=== PATIENT | female | born 1995 | race Caucasian/White ===

== ENCOUNTER 2018-08-20 01:19 | Emergency (ER) | payer MEDICAID ==
[~2018-08-20] VITALS: Ht 165.1 cm; Wt 104.3 kg
[2018-08-20 01:22] VITALS: BP_SYST 161
[2018-08-20] MEDS ORDERED: CYCLOBENZAPRINE HCL 10 MG TABLET (FLEXERIL) PO ONE (01:45)
[2018-08-20] MEDS ORDERED: IBUPROFEN 800 MG TABLET PO ONE (01:45)
[2018-08-20 02:58] VITALS: BP_SYST 148
== END 2018-08-20 02:58 | disposition home or self-care (01) ==
LOC: SED 01:19
DX: M25.562 Pain in left knee (principal); M54.5 Low back pain; V43.62XA Car passenger injured in collision with other type car in traffic accident, initial encounter; Y93.89 Activity, other specified; Y92.410 Unspecified street and highway as the place of occurrence of the external cause; Y99.8 Other external cause status
CPT/HCPCS: 72072-TC; 72110; 73564; 99283

== ENCOUNTER 2018-10-27 23:53 | Emergency (ER) | payer MEDICAID ==
[~2018-10-27] VITALS: Ht 167.6 cm; Wt 108.9 kg
[2018-10-28 00:08] VITALS: BP_SYST 145
[2018-10-28] MEDS ORDERED: CYCLOBENZAPRINE HCL 10 MG TABLET (FLEXERIL) PO ONE (00:30)
[2018-10-28] MEDS ORDERED: KETOROLAC TROMETHAMINE 30 MG VIAL IM ONE (00:30)
[2018-10-28 00:33] VITALS: BP_SYST 135
== END 2018-10-28 00:33 | disposition home or self-care (01) ==
LOC: SED 23:53
DX: M54.6 Pain in thoracic spine (principal)
CPT/HCPCS: 96372; 99283; J1885